=== PATIENT | female | born 1955 | race African-American/Black ===

== ENCOUNTER 2018-06-05 08:13 | Emergency (ER) | payer MEDICAID ==
[~2018-06-05] VITALS: Ht 157.5 cm; Wt 61.0 kg
[2018-06-05 08:26] VITALS: BP 140/55
== END 2018-06-05 10:36 | disposition home or self-care (01) ==
LOC: ER 08:13
DX: S50.01XA Contusion of right elbow, initial encounter (principal); M25.421 Effusion, right elbow; I10 Essential (primary) hypertension; F17.200 Nicotine dependence, unspecified, uncomplicated; Z98.890 Other specified postprocedural states; X58.XXXA Exposure to other specified factors, initial encounter; Y93.89 Activity, other specified; Y92.89 Other specified places as the place of occurrence of the external cause; Y99.8 Other external cause status
CPT/HCPCS: 73080; 99283

== ENCOUNTER 2020-07-20 13:22 | Emergency (ER) | payer MEDICAID ==
[~2020-07-20] VITALS: Ht 157.5 cm; Wt 57.0 kg
[2020-07-20 13:23] VITALS: BP 161/80
[2020-07-20 14:39] LABS: BASOPHILS % 0.5 % (0.0-2.0); EOSINOPHILS % 1.6 % (0.0-5.0); HEMATOCRIT. 39.2 % (36.0-48.0); HEMOGLOBIN. 13.7 g/dL (12.0-16.0); LYMPHOCYTES % 32.7 % (20.0-50.0); MEAN CORPUSCULAR HEMOGLOBIN 32.2 pg (28.0-32.0); MEAN CORPUSCULAR VOLUME 92.2 fL (81.0-99.0); MEAN PLATELET VOLUME 11.2 fl (7.4-10.4); MONOCYTES % 7.2 % (2.0-8.0); PLATELET 208 x1000/uL (130-400); RED BLOOD CELL COUNT 4.26 mill/uL (4.2-5.4); RED CELL DISTRIBUTION WIDTH 13.3 % (11.6-14.6)
[2020-07-20 14:44] LABS: CHLORIDE 108 mEq/L (98-107)
[2020-07-24] MEDS ORDERED: COR3 PO (10:12)
[2020-07-24] MEDS ORDERED: LIP40 PO (10:12)
[2020-07-24] MEDS ORDERED: FAMO20TA8 PO (10:12)
[2020-07-24] MEDS ORDERED: LISI20TA31 PO (10:12)
[2020-07-24] MEDS ORDERED: FURO20TA4 PO (10:12)
[2020-07-24] MEDS ORDERED: ASPI-1160 PO (10:12)
== END 2020-07-20 16:00 | disposition left against medical advice (07) ==
LOC: ER 13:22
DX: R05 Cough (principal); R79.0 Abnormal level of blood mineral; I10 Essential (primary) hypertension; Z98.890 Other specified postprocedural states; Z86.39 Personal history of other endocrine, nutritional and metabolic disease
CPT/HCPCS: 36415; 71045; 80053; 83880; 84484; 85025; 99284

== ENCOUNTER 2021-02-01 09:46 | Emergency (ER) | payer MEDICAID, OTHER ==
[~2021-02-01] VITALS: Ht 160 cm; Wt 55.0 kg
[~2021-02-01 09:46] MED LIST: ASPI-1160 PO; COR3 PO; FAMO20TA8 PO; FURO20TA4 PO; LIP40 PO; LISI20TA31 PO
[2021-02-01 09:55] VITALS: BP 130/60
[2021-02-01] MEDS ORDERED: OFLO5DRO4 EACH EAR (10:29)
== END 2021-02-01 10:48 | disposition home or self-care (01) ==
LOC: ER 09:46
DX: T16.2XXA Foreign body in left ear, initial encounter (principal); T16.1XXA Foreign body in right ear, initial encounter; X58.XXXA Exposure to other specified factors, initial encounter; Y93.89 Activity, other specified; Y92.89 Other specified places as the place of occurrence of the external cause; Y99.8 Other external cause status
CPT/HCPCS: 99283